=== PATIENT | female | born 1960 | race Hispanic/Latino ===

== ENCOUNTER 2024-10-02 06:49 | Emergency (ER) | payer OTHER ==
[~2024-10-02] VITALS: Ht 162.6 cm; Wt 66.9 kg
[2024-10-02 06:59] VITALS: PULSE 90; RESP 20; TEMP 98.3
[2024-10-02] MEDS: ONDANSETRON HCL INJ 2MG/ML 2ML 2 MG/ML VIAL IV STA (07:50)
[2024-10-02] MEDS: SODIUM CHLORIDE 0.9% 1000ML 1,000 ML IV ONE (07:50)
[2024-10-02] MEDS: FAMOTIDINE 20 MG/2 ML VIAL IV STA (07:50)
[2024-10-02] MEDS ORDERED: IOPAMIDOL 370 MG/ML 100 ML INFUS..BTL INJ ONE (09:19)
[2024-10-02] MEDS ORDERED: BACTRIM DS TAB1 EACH PO (09:45)
[2024-10-02] MEDS ORDERED: ONDANSETRON ODT4 MG PO (09:46)
[2024-10-02 10:05] VITALS: BP 141/64; PULSE 69; RESP 16; TEMP 98.4; O2SAT 97
== END 2024-10-02 10:04 | disposition home or self-care (01) ==
LOC: FSED 07:09
DX: R19.7 Diarrhea, unspecified (principal); E86.0 Dehydration; N39.0 Urinary tract infection, site not specified; N28.1 Cyst of kidney, acquired; K76.0 Fatty (change of) liver, not elsewhere classified; K21.9 Gastro-esophageal reflux disease without esophagitis; Z11.52 Encounter for screening for COVID-19
CPT/HCPCS: 0223U; 74177; 80053; 81003; 84484; 85025; 87400; 99283; J0696; J2405; J7030; Q9967; 93005

== ENCOUNTER 2024-10-31 19:34 | Emergency (ER) | payer OTHER ==
[~2024-10-31] VITALS: Ht 162.6 cm; Wt 65.8 kg
[~2024-10-31 19:34] MED LIST: BACTRIM DS TAB1 EACH PO; ONDANSETRON ODT4 MG PO
[2024-10-31 20:03] VITALS: PULSE 92; RESP 18; TEMP 98.5
[2024-10-31] MEDS: DEXAMETHASONE SOD PHOS INJ 4 MG/ML SDV IM ONE (20:38)
[2024-10-31] MEDS: ACETAMINOPHEN 325 MG TAB PO ONE (20:38)
[2024-10-31] MEDS ORDERED: DIPHENHYDRAMINE25 M2 PO (21:05)
[2024-10-31] MEDS ORDERED: LEVOFLOXACIN250 MG PO (21:05)
[2024-10-31] MEDS ORDERED: ROBITUSSIN COU118 M4 PO (21:05)
[2024-10-31] MEDS ORDERED: NASACORT16.9 ML (21:05)
[2024-10-31] MEDS: ALBUTEROL/IPRATROPIUM 3 ML NEB NEB ONE (21:11)
[2024-10-31 21:33] VITALS: BP 141/88; PULSE 80; RESP 18; O2SAT 97
== END 2024-10-31 21:53 | disposition home or self-care (01) ==
LOC: FSED 19:38
DX: R05.9 Cough, unspecified (principal); J40 Bronchitis, not specified as acute or chronic; J06.9 Acute upper respiratory infection, unspecified; R09.89 Other specified symptoms and signs involving the circulatory and respiratory systems; R53.81 Other malaise; Z11.52 Encounter for screening for COVID-19
CPT/HCPCS: 0223U; 71046; 83518 ×2; 87400; 99284; J1100

== ENCOUNTER 2025-02-16 13:31 | Emergency (ER) | payer OTHER ==
[~2025-02-16] VITALS: Ht 162.6 cm; Wt 65.3 kg
[~2025-02-16 13:31] MED LIST changes: +DIPHENHYDRAMINE25 M2 PO; +LEVOFLOXACIN250 MG PO; +NASACORT16.9 ML; +ROBITUSSIN COU118 M4 PO
[2025-02-16 13:46] VITALS: PULSE 86; RESP 18; TEMP 98.1
[2025-02-16 14:05] VITALS: BP 129/70; O2SAT 95
== END 2025-02-16 14:03 | disposition home or self-care (01) ==
LOC: FSED 13:41
DX: N63.23 Unspecified lump in the left breast, lower outer quadrant (principal)
CPT/HCPCS: 99282

== ENCOUNTER 2025-05-19 18:11 | Emergency (ER) | payer MEDICARE, OTHER ==
[~2025-05-19] VITALS: Ht 162.6 cm; Wt 66.3 kg
[2025-05-19 18:18] VITALS: PULSE 70; RESP 16; TEMP 98.7; O2SAT 98
== END 2025-05-19 18:51 | disposition home or self-care (01) ==
LOC: FSED 18:18
DX: R05.9 Cough, unspecified (principal); J06.9 Acute upper respiratory infection, unspecified; Z11.52 Encounter for screening for COVID-19
CPT/HCPCS: 0223U; 83518; 87400; 99283